=== PATIENT | female | born 1995 | race Caucasian/White ===

== ENCOUNTER 2017-09-01 03:43 | Emergency (ER) | payer BC, SELFPAY ==
[2017-09-01 03:46] VITALS: BP 127/82; PULSE 133; RESP 20; RESP 22; TEMP 36.9; O2SAT 99; BMI 30.4
--- NOTE | 2017-09-01 03:48 | NURSING ---
CALLED FOR EKG PER RN REQUEST, NO OLD EKG'S IN MUSE
[2017-09-01 03:54] VITALS: O2SAT 97
--- NOTE | 2017-09-01 03:54 | EKG12_ITS ---
Test Reason : CP Blood Pressure : / mmHG Vent. Rate : 131 BPM Atrial Rate : 131 BPM P-R Int : 130 ms QRS Dur : 082 ms QT Int : 302 ms P-R-T Axes : 061 047 021 degrees QTc Int : 445 ms Sinus tachycardia Nonspecific ST and T wave abnormality Abnormal ECG Confirmed by NIKITA HAMM, SRUTHI ([id number]), web content editor NATE EDGAR ([id number]) on 09/03/2017 3:00:24 PM Referred By: TL Confirmed By:SRUTHI SHELTON MD
--- NOTE | 2017-09-01 03:54 | RAD_ITS ---
STUDY: X-RAY CHEST REASON FOR EXAM: Female, 21 years old. Chest pain TECHNIQUE: Single AP portable view of the chest. COMPARISON: None. FINDINGS: The lungs are clear and expanded. There is no demonstrated pleural abnormality. Normal size heart. Normal mediastinum and keli. Normal visualized pulmonary arteries. Normal visualized aortic arch and descending thoracic aorta. Normal visualized thoracic spine. Normal visualized ribs, clavicles, and shoulders. There is no demonstrated abnormality of the visualized soft tissue structures of the upper abdomen. RAD/Chest 1 View (Portable) IMPRESSION: Normal x-ray examination of the chest. Electronically Signed: Myra Candelaria MD at 5:18 EST Tel , Service support ,
--- NOTE | 2017-09-01 03:59 | ED.DCSUM_ITS ---
- ER Visit Summary Date of Service: 09/01/17 Chief Complaint: Chest pain History of Present Illness: The patient is a 21 F intermittent chest pains for the past 2 months, states banding sensation under her breasts left greater than right. This evening at 9 PM started having symptoms. It is persistent. Tingling in bilateral hands, however states was breathing fast. She feels palpitations and racing heart. Nausea symptoms. Took a baby aspirin. No family history of MIs at a young age or any sudden that she is aware of. No history of hypertension, diabetes, hypercholesterolemia. She does have a smoking history. She is also on oral contraceptives for the past 6 months. No upper respiratory illness, no cough. Last menstrual period 6 months ago. States she did travel to [place] a couple weeks ago with a [address] No history PE or DVT. No recent leg swelling or cramping. [facility] made appointment with the PCP, Dr. Cruz on the for initial visit. Physical Examination: General: Alert and oriented ?3, no acute distress HEENT: Normocephalic, atraumatic. Moist mucosa membranes Neck: supple, nontender. Cardiovascular: Regular tachycardic rate 131 and rhythm, no murmurs Respiratory: Normal breath sounds, symmetric, no distress Abdomen: Soft, nontender, nondistended Extremities: Nontender, no edema, pulses intact ?4. No calf or medial thigh tenderness bilaterally. Neuro: no focal neurological deficits. Test Results: EKG: Sinus rate of 131, no ST or T-wave changes. Troponin negative. White blood cell count 17. D-dimer negative. Chest x-ray negative. Emergency Department Course and Treatment: EKG: Sinus rate 131, no ST or T-wave changes. Chest x-ray negative. Troponin negative. Heart scores a 1. D-dimer negative. White count was 17.4. No pneumonia on chest x-ray, no upper respiratory symptoms. No urinary symptoms. Likely reactive. Patient with no rash. Reevaluation heart rate was 75. Symptoms resolved. Patient more reassured. Discussed tobacco cessation with the patient. Monitor symptoms. She will follow-up as scheduled as an outpatient, she return if any worsening symptoms. All questions were answered. Treatment Plan: [] Disposition: Discharge Impression: 1. Atypical chest pain This note was generated with [employer] software. It may contain incorrect words, spelling, and punctuation that were not noted in review of the chart prior to signing ED Disposition - Plan for ED Patient: Disposition: Home or Assisted Living Chief Complaint: Chest Pain Diagnosis: Atypical chest pain Instructions: ED Chest Pain Atypical Unkn Cause Referrals: Care Physician,No Primary [NON-STAFF] - Gino Walker MD [Primary Care Provider] - Keep Laura appointment
[2017-09-01] MEDS: Aspirin 81 MG TAB.CHEW PO (04:00)
[2017-09-01] MEDS: 0.9% Normal Saline 1,000 ML 1000 ML IV (04:00)
[2017-09-01 04:15] LABS: Absolute Lymphocyte Count 3.38 X10^3/ul (0.83-4.51); Basophil# 0.07 X10^3/uL; Basophil% 0.4 % (0-1); Eosinophils% 0.6 % (0-5); Hematocrit 43.5 % (37-47); Hemoglobin 15.3 g/dl (12.0-15.0); Lymphocyte # 3.38 X10^3/ul (4.0); Lymphocyte % 19.5 % (19-41); Mean Corp Hgb Conc 35.2 g/gl (32-36); Mean Corpuscular Hgb 31.9 pg (27.0-32.0); Mean Corpuscular Volume 90.6 fL (81-99); Mean Platelet Vol. 9.6 fl (6.2-12.0); Monocyte# 0.76 X10^3/uL; Monocyte% 4.4 % (0-10); Neutrophil # 12.99 X10^3/uL (2.7-7.7); Neutrophil % 74.8 % (47-70); Platelet Count 398 K/mm3 (150-450); RBC Distribution Width CV 12.3 % (11.6-14.6); RBC Distribution Width SD 40.3 fl (35.1-43.9); White Blood Count 17.4 K/mm3 (4.4-11.0)
[2017-09-01 04:17] LABS: POSITIVE COUNT NO; POSITIVE DIFFERENTIAL NO; POSITIVE MORPHOLOGY NO
[2017-09-01 04:25] LABS: D-Dimer Quantitative (DVT/PE) 0.39 FEU/ug/m (0.27-0.49)
[2017-09-01 04:38] LABS: Anion Gap 11 (5-15); BUN 13 mg/dL (7-18); BUN/Creat Ratio 12.7 RATIO (10-20); Calcium,Total 9.5 mg/dL (8.5-10.1); Chloride 105 mmol/L (98-107); Creatinine, Serum 1.02 mg/dL (0.55-1.02); EST Glomerular Filtration Rate 71 mL/min (>60); Est Glom Filt Rate - Afr Amer 86 mL/min (>60); Estimated Creatinine Clearance 67.84 ml/min; Glucose 118 mg/dL (74-106); Potassium 3.8 mmol/L (3.5-5.1); Sodium Level 140 mmol/L (136-145)
[2017-09-01 04:39] LABS: Pregnancy, Serum, hCG Quali. NEGATIVE Negative (0-9 Nonpreg)
[2017-09-01 05:21] VITALS: BP 114/72; PULSE 86; RESP 20; O2SAT 97
== END 2017-09-01 05:22 | disposition home or self-care (01) ==
PROVIDERS: Emergency Provider Emergency Medicine; Family Provider Family Medicine; PCP Family Medicine
DX: R07.89 Other chest pain (principal); R00.2 Palpitations; Z87.891 Personal history of nicotine dependence
CPT/HCPCS: 71045; 80048; 84484; 84703; 85025; 85379; 93005; 96360; 99285; J7030

== ENCOUNTER 2017-09-05 19:24 | Emergency (ER) | payer BC, SELFPAY ==
[2017-09-05 19:25] VITALS: BP 120/62; PULSE 111; RESP 20; TEMP 36.6; O2SAT 98; BMI 29.7
--- NOTE | 2017-09-05 20:29 | EKG12_ITS ---
Test Reason : CP Blood Pressure : / mmHG Vent. Rate : 075 BPM Atrial Rate : 075 BPM P-R Int : 120 ms QRS Dur : 086 ms QT Int : 390 ms P-R-T Axes : 035 048 044 degrees QTc Int : 435 ms Normal sinus rhythm with sinus arrhythmia Normal ECG Confirmed by WILLOW RICKS ([id number]), development editor NATE EDGAR ([id number]) on 09/10/2017 1:52:38 PM Referred By: ROSIBEL Confirmed By:WILLOW RICKS
[2017-09-05 21:04] LABS: Absolute Lymphocyte Count 4.17 X10^3/ul (0.83-4.51); Absolute Neutrophil Count 7.5 X10^3/uL (2.0-7.7); Basophil# 0.04 X10^3/uL; Basophil% 0.3 % (0-1); Eosinophil# 0.08 X10^3/uL; Eosinophils% 0.7 % (0-5); Hematocrit 42.6 % (37-47); Hemoglobin 14.2 g/dl (12.0-15.0); Lymphocyte # 4.17 X10^3/ul (4.0); Lymphocyte % 34.2 % (19-41); Mean Corp Hgb Conc 33.3 g/gl (32-36); Mean Corpuscular Hgb 30.6 pg (27.0-32.0); Mean Corpuscular Volume 91.8 fL (81-99); Mean Platelet Vol. 9.5 fl (6.2-12.0); Monocyte# 0.43 X10^3/uL; Monocyte% 3.5 % (0-10); Neutrophil # 7.47 X10^3/uL (2.7-7.7); Neutrophil % 61.1 % (47-70); Platelet Count 336 K/mm3 (150-450); RBC Distribution Width CV 12.2 % (11.6-14.6); RBC Distribution Width SD 41.3 fl (35.1-43.9); Red Blood Count 4.64 M/mm3 (4.2-5.4); White Blood Count 12.2 K/mm3 (4.4-11.0)
[2017-09-05 21:06] LABS: POSITIVE COUNT NO; POSITIVE DIFFERENTIAL NO; POSITIVE MORPHOLOGY NO
[2017-09-05 21:27] LABS: AST(SGOT) 14 U/L (15-37); Alanine Aminotransfer ALT/SGPT 18 U/L (13-56); Albumin, Serum 4.2 g/dL (3.2-5.0); Alkaline Phosphatase 69 U/L (45-117); Anion Gap 9 (5-15); BUN 7 mg/dL (7-18); BUN/Creat Ratio 9.9 RATIO (10-20); Calcium,Total 9.2 mg/dL (8.5-10.1); Chloride 108 mmol/L (98-107); Creatinine, Serum 0.71 mg/dL (0.55-1.02); EST Glomerular Filtration Rate 108 mL/min (>60); Est Glom Filt Rate - Afr Amer 131 mL/min (>60); Estimated Creatinine Clearance 97.47 ml/min; Globulin 4.3 g/dL (2.2-4.2); Glucose 87 mg/dL (74-106); Lipase 72 U/L (73-393); Potassium 3.7 mmol/L (3.5-5.1); Protein, Total 8.5 g/dL (6.4-8.2); Sodium Level 142 mmol/L (136-145)
[2017-09-05 21:30] VITALS: BP 140/74; PULSE 90; RESP 14; O2SAT 98
--- NOTE | 2017-09-05 21:57 | ED.VISSUMM ---
- ER Visit Summary Date of Service: 09/05/17 Chief Complaint: Chest pain History of Present Illness: The patient is a 21 F presenting for evaluation secondary chest pain. Patient states that she has been getting basically intermittent chest pain over the course the last 3 months. She describes it as a tightness more in her epigastric region radiating through to her back. States that it is associated with intermittent vomiting diaphoresis difficulty sleeping and early satiety. Patient states that it tends to be exacerbated by eating, specific movements, or smoking. Patient states that she was seen in the emergency department 4 days ago for this, had a negative workup, and was discharged. She is continuing to have issues with this and she looked up on the Internet that it could be from an aortic aneurysm so she decided to come into the emergency department. Physical Examination: Vital signs are within normal limits, patient is afebrile. General: Patient is well-nourished well-developed and in no acute distress. Head: Normocephalic, atraumatic Eyes: Pupils equal round and reactive bilaterally, extra occular motion intact bialterally ENT: Moist mucous membranes Neck: Supple, no lymphadenopathy, no JVD, no meningismus CVS: Heart regular rate and rhythm, no murmurs, rubs or gallops, radial pulses 2+ bilaterally Resp: Respirations nondistressed, lung sounds clear bilaterally Abdomen: Soft, minimal epigastric tenderness to palpation no guarding no rebound, nondistended, no palpable masses, normal bowel sounds Back: Nontender Extremities: Nontender, atraumatic, active full range of motion, no peripheral edema Skin: warm, no rashes, no petechia Neuro: Alert and oriented x 4, CN 2-12 intact, no lateralizing neurological defecits Psyc: Normal affect Test Results: EKG shows sinus rate of [address] segments normal T waves, no evidence of right ventricular strain, no S1, q 3, T3 morphology and unchanged from prior. CBC shows leukocytosis 12, chemistry unremarkable, liver panel and lipase unremarkable Emergency Department Course and Treatment: Patient presented for what she initially described as chest pain but really seem to be more consistent with abdominal discomfort. I performed a bedside ultrasound on the patient she has a normal caliber aorta. She was evaluated for the possibility of pancreatitis versus gallbladder versus liver disease was found to be negative. Patient reports that she is having some early satiety and that the symptoms seem to be exacerbated every time she eats, so potentially she is dealing with an element of gastritis versus peptic ulcer. Patient was placed on a course of omeprazole and Carafate and encouraged follow-up with primary care. Disposition: Discharge Impression: 1. Gastritis This note was generated with [employer] dictation software. It may contain incorrect words, spelling, and punctuation that were not noted in review of the chart prior to signing ED Disposition - Plan for ED Patient: Disposition: Home or Assisted Living Chief Complaint: Chest Pain Diagnosis: Gastritis Instructions: ED PUD Vs Gastritis Prescriptions: Omeprazole 40 mg PO DAILY #30 capsule. Sucralfate [Carafate] 1 gm PO 4X/DAY #120 tab Referrals: Gino Walker MD [Primary Care Provider] - 1-2 Weeks
--- NOTE | 2017-09-05 22:00 | ED.DCSUM_ITS ---
- ER Visit Summary Date of Service: 09/05/17 Chief Complaint: Chest pain History of Present Illness: The patient is a 21 F presenting for evaluation secondary chest pain. Patient states that she has been getting basically intermittent chest pain over the course the last 3 months. She describes it as a tightness more in her epigastric region radiating through to her back. States that it is associated with intermittent vomiting diaphoresis difficulty sleeping and early satiety. Patient states that it tends to be exacerbated by eating, specific movements, or smoking. Patient states that she was seen in the emergency department 4 days ago for this, had a negative workup, and was discharged. She is continuing to have issues with this and she looked up on the Internet that it could be from an aortic aneurysm so she decided to come into the emergency department. Physical Examination: Vital signs are within normal limits, patient is afebrile. General: Patient is well-nourished well-developed and in no acute distress. Head: Normocephalic, atraumatic Eyes: Pupils equal round and reactive bilaterally, extra occular motion intact bialterally ENT: Moist mucous membranes Neck: Supple, no lymphadenopathy, no JVD, no meningismus CVS: Heart regular rate and rhythm, no murmurs, rubs or gallops, radial pulses 2 + bilaterally Resp: Respirations nondistressed, lung sounds clear bilaterally Abdomen: Soft, minimal epigastric tenderness to palpation no guarding no rebound , nondistended, no palpable masses, normal bowel sounds Back: Nontender Extremities: Nontender, atraumatic, active full range of motion, no peripheral edema Skin: warm, no rashes, no petechia Neuro: Alert and oriented x 4, CN 2-12 intact, no lateralizing neurological defecits Psyc: Normal affect Test Results: EKG shows sinus rate of [address] segments normal T waves , no evidence of right ventricular strain, no S1, q 3, T3 morphology and unchanged from prior. CBC shows leukocytosis 12, chemistry unremarkable, liver panel and lipase unremarkable Emergency Department Course and Treatment: Patient presented for what she initially described as chest pain but really seem to be more consistent with abdominal discomfort. I performed a bedside ultrasound on the patient she has a normal caliber aorta. She was evaluated for the possibility of pancreatitis versus gallbladder versus liver disease was found to be negative. Patient reports that she is having some early satiety and that the symptoms seem to be exacerbated every time she eats, so potentially she is dealing with an element of gastritis versus peptic ulcer. Patient was placed on a course of omeprazole and Carafate and encouraged follow-up with primary care. Disposition: Discharge Impression: 1. Gastritis This note was generated with [employer] dictation software. It may contain incorrect words, spelling, and punctuation that were not noted in review of the chart prior to signing ED Disposition - Plan for ED Patient: Disposition: Home or Assisted Living Chief Complaint: Chest Pain Diagnosis: Gastritis Instructions: ED PUD Vs Gastritis Prescriptions: Omeprazole 40 mg PO DAILY #30 capsule. Sucralfate [Carafate] 1 gm PO 4X/DAY #120 tab Referrals: Gino Walker MD [Primary Care Provider] - 1-2 Weeks
[2017-09-05 22:02] VITALS: BP 135/80; PULSE 90; RESP 14; O2SAT 99
== END 2017-09-05 22:04 | disposition home or self-care (01) ==
PROVIDERS: Emergency Provider Emergency Medicine; Family Provider Family Medicine; PCP Family Medicine
DX: K29.70 Gastritis, unspecified, without bleeding (principal); Z86.59 Personal history of other mental and behavioral disorders; Z72.0 Tobacco use
CPT/HCPCS: 36415; 80053; 83690; 85025; 93005; 99282

== ENCOUNTER → 2017-09-17 09:44 | Outpatient (CLI) | payer BC, SELFPAY ==
--- NOTE | 2017-09-17 09:47 | RAD_ITS ---
STUDY: UPPER GI WITH AIR CONTRAST REASON FOR EXAM: Female, 21 years old. Epigastric pain x1 month RADIATION DOSAGE (If Supplied By Facility): CTDIvol = ( ) mGy, DLP = ( ) mGycm. Individualized dose optimization techniques were used for this CT.? FLUOROSCOPY TIME (if supplied): (1:27) minutes/seconds TECHNIQUE: COMPARISON: None. FINDINGS: Swelling is initiated normally. No nasopharyngeal reflux or aspiration. No Zenker's diverticulum noted on the lateral view. Normal peristaltic activity in the esophagus. No evidence of a hiatal hernia, intraesophageal reflux or GE reflux. Stomach distends normally without evidence of rugal fold enlargement or mucosal ulceration. The duodenal C-loop is not elongated and demonstrates a normal mucosal pattern. RAD/Upper GI Series Only IMPRESSION: Normal study Electronically Signed: Serge Shelton MD at 10:33 EDT , Service support ,
== END ==
PROVIDERS: Family Provider Family Medicine; PCP Family Medicine; Visit Provider Family Medicine
DX: R10.13 Epigastric pain (principal)
CPT/HCPCS: 74246